=== PATIENT | female | born 1975 | race Caucasian/White ===

== ENCOUNTER 2017-09-25 08:14 | Day surgery (SDC) | payer OTHER ==
[~2017-09-25] VITALS: Ht 167.6 cm; Wt 69.4 kg
[2017-09-25] MEDS ORDERED: fentaNYL CITRATE/PF 100 MCG/2 ML AMP IVP ONE (10:01)
[2017-09-25] MEDS ORDERED: SEVOFLURANE 15 MIN GAS INH ONE (10:01)
[2017-09-25] MEDS ORDERED: MIDAZOLAM HCL 5 MG/5 ML VIAL IVP ONE (10:01)
[2017-09-25] MEDS ORDERED: PROPOFOL 200MG/ 20ML VIAL (DIPRIVAN) IV ONE (10:01)
[2017-09-25] MEDS ORDERED: ONDANSETRON HCL 4 MG/2 ML VIAL IVP PRN ×2 (11:00→11:15)
[2017-09-25] MEDS ORDERED: KETOROLAC TROMETHAMINE 30 MG VIAL IVP PRN (11:00)
[2017-09-25] MEDS ORDERED: fentaNYL CITRATE/PF 100 MCG/2 ML AMP IVP PRN ×2 (11:00)
[2017-09-25] MEDS ORDERED: OXYCODONE/ACETAMINOPHEN 5-325 TABLET PO PRN (11:15)
[2017-09-25] MEDS ORDERED: HYDROmorphone 2 MG TAB PO PRN (11:15)
[2017-09-25] MEDS ORDERED: PROMETHAZINE HCL 25 MG/ML AMP IM PRN ×2 (11:15)
[2017-09-25 12:00] VITALS: BP_SYST 117
[2017-09-25] MEDS ORDERED: KETOROLAC TROMETHAMINE 30 MG VIAL IVP SCH (12:00)
== END 2017-09-25 13:20 | disposition home or self-care (01) ==
LOC: SMU 08:14 → SDS 08:14
PROVIDERS: ATTEND Obstetrics & Gynecology
DX: N84.0 Polyp of corpus uteri (principal); E55.9 Vitamin D deficiency, unspecified; Z79.899 Other long term (current) drug therapy
CPT/HCPCS: 36415; 58558; 86886; 86900; 86901; 88305; C1819; J2250; J2704; J3010; J7120